=== PATIENT | female | born 1990 | race Caucasian/White ===

== ENCOUNTER 2022-04-10 11:20 | Inpatient (IN) | payer BC ==
[2022-04-10] MEDS ORDERED: CITRIC ACID-SODIUM CITRATE 15 ML CUP PO ONE (13:12)
--- NOTE | 2022-04-10 13:16 | P.HPOB ---
History of Present Illness H&P Date: 04/10/22 Chief Complaint: oligohydramnios 31-year-old presents at 36 weeks and 5 days. She can to my office for an OB visit and had an ultrasound for fluid. Her last week her fluid was between 4 and 6 cm. This week her fluid is 3 cm. heart tones 140 with moderate variability and reactive no decelerations. I discussed the case with maternal medicine who recommended delivery. The baby is in breech presentation so she will undergo a primary low transverse . Review of Systems All systems: negative Constitutional: Denies chills, Denies fever Eyes: denies blurred vision, denies pain Ears, nose, mouth and throat: Denies headache, Denies sore throat Cardiovascular: Denies chest pain, Denies shortness of breath Respiratory: Denies cough Gastrointestinal: Denies abdominal pain, Denies diarrhea, Denies nausea, Denies vomiting Genitourinary: Denies dysuria, Denies hematuria Musculoskeletal: Denies myalgias Integumentary: Denies pruritus, Denies rash Neurological: Denies numbness, Denies weakness Psychiatric: Denies anxiety, Denies depression Endocrine: Denies fatigue, Denies weight change Medications and Allergies Allergies Allergy/AdvReac Type Severity Reaction Status Date / Time clindamycin Allergy Rash/Hives Verified 04/10/22 12:12 Sulfa (Sulfonamide Allergy Rash/Hives Verified 04/10/22 12:12 Antibiotics) sulfamethoxazole Allergy Rash/Hives Verified 04/10/22 12:12 [From Bactrim] trimethoprim [From Bactrim] Allergy Rash/Hives Verified 04/10/22 12:12 Exam Osteopathic Statement: *. No significant issues noted on an osteopathic structural exam other than those noted in the History and Physical/Consult. Intake and Output 04/09/22 04/10/22 04/10/22 22:59 06:59 14:59 Other: Weight 99.79 kg Heart: Regular rate and rhythm Lungs: Clear to auscultation bilaterally Abdomen: Soft, nontender Extremities: Negative Homans sign Assessment and Plan (1) 36 weeks gestation of Current Visit: Yes Status: Acute Code(s): Z3A.36 - 36 WEEKS GESTATION OF SNOMED Code(s): 33769198 (2) Oligohydramnios Current Visit: Yes Status: Acute Code(s): O41.00X0 - OLIGOHYDRAMNIOS, UNSP TRIMESTER, NOT APPLICABLE OR UNSP SNOMED Code(s): 37683841 (3) Breech presentation Current Visit: Yes Status: Acute Code(s): O32.1XX0 - MATERNAL CARE FOR BREECH PRESENTATION, UNSP SNOMED Code(s): 0703193 Plan: 1. Primary low transverse
[2022-04-10 14:56] LABS: Basophils # (A) 0.1 k/uL (0-0.2); Basophils % (A) 0 %; Eosinophils % (A) 0 %; HCT 41.2 % (34.0-46.0); HGB 13.2 gm/dL (11.4-16.0); Lymphocytes # (A) 1.5 k/uL (1.0-4.8); Lymphocytes % (A) 12 %; MCH 27.9 pg (25.0-35.0); MCV 87.2 fL (80.0-100.0); Mean Platelet Volume 7.7; Monocytes # (A) 0.4 k/uL (0-1.0); Monocytes % (A) 3 %; Neutrophils # (A) 10.4 k/uL (1.3-7.7); Neutrophils % (A) 83 %; Platelet Count 171 k/uL (150-450); RBC 4.72 m/uL (3.80-5.40); RDW 13.9 % (11.5-15.5); WBC 12.5 k/uL (3.8-10.6)
[2022-04-10 15:16] LABS: Partial Thromboplastin Time 27.4 sec (22.0-30.0); Prothrombin Time 11.2 sec (9.0-12.0)
[2022-04-10] MEDS: LACTATED RINGERS 1,000 ML IV SCH ×4 (16:20→21:33)
[2022-04-10] MEDS ORDERED: ONDANSETRON 4 MG/2 ML VIAL ONE (17:03)
[2022-04-10] MEDS ORDERED: NALBUPHINE 10 MG/ML (1 ML AMP) ONE (17:03)
[2022-04-10] MEDS ORDERED: MORPHINE SULFATE (PF) 0.3 MG/0.3 ML SYR ONE (17:03)
[2022-04-10] MEDS ORDERED: KETOROLAC 15 MG/ML 1 ML VIAL ONE (17:03)
[2022-04-10] MEDS ORDERED: OXYTOCIN 30 UNITS/500 ML NS BAG IV ONE (17:03)
[2022-04-10] MEDS ORDERED: ONDANSETRON 4 MG/2 ML VIAL IVP PRN (17:46)
[2022-04-10] MEDS ORDERED: diphenhydrAMINE 50 MG/ML 1 ML VIAL IVP PRN ×2 (17:46)
[2022-04-10] MEDS ORDERED: diphenhydrAMINE 50 MG CAP PO PRN (17:46)
[2022-04-10] MEDS ORDERED: LANOLIN CREAM 5 GM TUBE TOPICAL PRN (17:46)
[2022-04-10] MEDS ORDERED: SIMETHICONE 80 MG CHEWABLE PO PRN (17:46)
[2022-04-10] MEDS ORDERED: NALOXONE 0.4 MG/ML 1 ML VIAL IV PRN ×2 (17:46→18:36)
[2022-04-10] MEDS ORDERED: METOCLOPRAMIDE 5 MG/ML 2 ML VIAL IVP PRN (17:46)
[2022-04-10] MEDS ORDERED: diphenhydrAMINE 25 MG CAP PO PRN (17:46)
[2022-04-10] MEDS ORDERED: ZOLPIDEM 5 MG TAB PO PRN (17:46)
--- NOTE | 2022-04-10 17:52 | P.OP ---
Date of Procedure: 04/10/22 Preoperative Diagnosis: 1. at 36 weeks and 5 days 2. Oligohydramnios 3. Breech Postoperative Diagnosis: 1. at 36 weeks and 5 days 2. Oligohydramnios 3. Suspect chorioamnionitis 4. Breech Procedure(s) Performed: Primary low transverse Anesthesia: spinal Surgeon: Aleida Farias Piano Builder #1: Gisell Jacinto Estimated Blood Loss (ml): 215 IV fluids (ml): 700 Urine output (ml): 250 Pathology: other (Placenta) Condition: stable Disposition: floor Description of Procedure: Patient was taken to the operating room where spinal anesthesia was found be adequate. She was prepped and draped in normal sterile fashion in dorsal supine position with a leftward tilt. Pfannenstiel skin incision was made the scalpel and carried through to the underlying layer of fascia with the scalpel. Fascia was incised in midline and carried bilaterally with the Blackmon scissors. The superior aspect of the fascial incision was grasped with Rene clamps elevated and the underlying rectus muscles dissected off with the Blackmon's. Attention was then turned to inferior aspect of same incision which in a similar fashion was grasped tented up and the underlying rectus muscles dissected off with the Blackmon's. The rectus muscles were the midline and the peritoneum was identified tented up and entered sharply with the scalpel. The incision was extended superiorly and inferiorly with good visualization of the bladder. The bladder blade was inserted and the vesicouterine peritoneum was incised the Metzenbaums then carried bilaterally and bladder flap created digitally. A low transverse incision was then made on the uterus with the scalpel. This was carried bilaterally and digital manner. 's head delivered atraumatically, nose and mouth bulb suctioned, cord clamped and cut, handed off to waiting nurses. Apgars 5,9, weight 6 lbs. 1 oz. Placenta delivered manually, intact with three-vessel cord. The uterus is exteriorized and cleared of all clots and debris. At this time a foul odor was noted to be coming from the placenta, the uterus and the baby. The uterine incision was closed with 0 Vicryl in a running locked fashion. Second layer of the same sutures used in imbricating fashion to obtain excellent hemostasis. Bladder flap was then reapproximated using 2-0 Vicryl in a running fashion. Both ovaries and tubes appeared normal. The uterus was placed back into the abdomen. The peritoneum was reapproximated using 2-0 Vicryl in a running fashion. The muscles were reapproximated using 2-0 Vicryl in interrupted fashion. The fascia was reapproximated using 0 Vicryl in a running fashion. The subcutaneous tissues closed with 3-0 Vicryl running fashion. The skin was closed zora. Patient tolerated the procedure well, sponge and instrument counts were correct times 2 and she was taken to the recovery room in stable condition.
[2022-04-10] MEDS ORDERED: OXYTOCIN 30 UNITS/500 ML NS 30 UNIT in SALINE 1 500ML.BAG IV SCH (18:00)
[2022-04-10] MEDS ORDERED: MORPHINE SULFATE 2 MG/ML SYRINGE IVP PRN (18:36)
[2022-04-10] MEDS: ACETAMINOPHEN TAB 500 MG TAB PO SCH (21:41)
[2022-04-10] MEDS: SENNOSIDES-DOCUSATE SODIUM 1 EACH TAB PO SCH (21:42)
[2022-04-11] MEDS: KETOROLAC 15 MG/ML 1 ML VIAL IVP SCH ×4 (01:15→17:20)
[2022-04-11] MEDS: LACTATED RINGERS 1,000 ML IV SCH ×3 (02:49→14:26)
[2022-04-11] MEDS: ACETAMINOPHEN TAB 500 MG TAB PO SCH ×4 (05:21→20:45)
[2022-04-11] MEDS: SENNOSIDES-DOCUSATE SODIUM 1 EACH TAB PO SCH ×2 (07:42→23:07)
[2022-04-11 08:46] LABS: Basophils % (A) 0 %; Eosinophils # (A) 0.1 k/uL (0-0.7); Eosinophils % (A) 1 %; HCT 39.1 % (34.0-46.0); HGB 12.4 gm/dL (11.4-16.0); Lymphocytes % (A) 8 %; MCH 27.8 pg (25.0-35.0); MCHC 31.6 g/dL (31.0-37.0); MCV 87.8 fL (80.0-100.0); Mean Platelet Volume 8.7; Monocytes # (A) 0.4 k/uL (0-1.0); Monocytes % (A) 3 %; Neutrophils # (A) 10.2 k/uL (1.3-7.7); Neutrophils % (A) 87 %; Platelet Count 152 k/uL (150-450); RBC 4.46 m/uL (3.80-5.40); RDW 13.9 % (11.5-15.5); WBC 11.8 k/uL (3.8-10.6)
--- NOTE | 2022-04-11 08:46 | P.PN ---
Progress Note - Text Date: 04/11/2022 Time: 07:48 The patient is status post section Vital signs stable VAS: 0-10 Patient has no complaints of pain. The patient incurred some minimal itching yesterday, this itching is now subsiding. Pain meds to be managed by service.
--- NOTE | 2022-04-11 12:16 | P.PNOBGPC ---
Subjective - Subjective Principal diagnosis: Status post primary section postoperative day #1 Interval history: Patient is doing okay. She is ambulating. She is passing flatus but no bowel movement yet. She is urinating without difficulty. Bleeding has slowed down. Baby is in level I nursery. Patient reports: Reports appetite normal, Reports voiding normally, Reports pain well controlled, Reports ambulating normally Douglas: other (In level I nursery) Objective - Vital Signs Latest vital signs: Vital Signs Temp Pulse Resp BP Pulse Ox 04/11/22 11:00 18 97 04/11/22 09:00 18 04/11/22 07:45 97.9 F 83 18 121/77 97 04/11/22 07:00 97.9 F 83 18 121/77 97 04/11/22 04:00 98.2 F 82 16 135/68 99 04/11/22 00:00 98.2 F 82 18 135/68 99 04/10/22 23:03 99 04/10/22 23:00 97.6 F 87 20 132/64 98 04/10/22 21:36 18 99 04/10/22 20:00 98.0 F 04/10/22 19:50 77 18 136/76 99 04/10/22 19:36 99 04/10/22 19:19 98.2 F 76 18 137/64 98 04/10/22 18:49 96.8 F L 89 17 145/63 97 04/10/22 18:36 17 98 04/10/22 18:34 68 17 138/71 98 04/10/22 18:19 64 17 133/76 97 04/10/22 18:04 66 16 130/62 97 04/10/22 17:49 97.8 F 75 17 131/60 96 04/10/22 14:11 98.0 F 96 14 146/92 Intake and Output 04/10/22 04/11/22 04/11/22 22:59 06:59 14:59 Intake Total 1050 120 Output Total 444 228 5521 Balance 360 -230 -1150 Intake: IV 1050 Oral 120 Output: Urine 662 614 1920 Uretheral (Pineda) 300 Output, Quantitative 290 Blood Loss Other: Voiding Method Indwelling Catheter # Voids 250 2 - Exam Extremities: Present: normal. Absent: tenderness, edema Abdomen: Present: normal appearance, soft (Positive bowel sounds 4). Absent: distention, tenderness Incision: Present: normal, dry, intact. Absent: erythematous Uterus: Present: normal, firm. Absent: tenderness - Labs Labs: Abnormal Lab Results - Last 24 Hours (Table) 04/10/22 04/11/22 Range/Units 14:37 08:30 WBC 12.5 H 11.8 H (3.8-10.6) k/uL Neutrophils # 10.4 H 10.2 H (1.3-7.7) k/uL Assessment and Plan Assessment: Status post primary low transverse section postoperative day #1 Plan: Continue with postoperative and care. Will advance diet as tolerated.
[2022-04-12] MEDS: KETOROLAC 15 MG/ML 1 ML VIAL IVP SCH ×2 (00:12→06:29)
[2022-04-12] MEDS: ACETAMINOPHEN TAB 500 MG TAB PO SCH ×3 (04:33→18:24)
[2022-04-12] MEDS: SENNOSIDES-DOCUSATE SODIUM 1 EACH TAB PO SCH ×2 (08:50→20:10)
--- NOTE | 2022-04-12 10:54 | P.PNOBGPC ---
Subjective - Subjective Principal diagnosis: Status post primary section postoperative day #2 Interval history: Patient is doing well. She is ambulating and passing flatus and bowel movement. She is urinating without difficulty. Lochia is minimal. She is starting to pump some breast milk. Baby is in level I nursery. Patient reports: Reports appetite normal, Reports voiding normally, Reports pain well controlled, Reports ambulating normally : other (In level I nursery) Objective - Vital Signs Latest vital signs: Vital Signs Temp Pulse Resp BP Pulse Ox 04/12/22 08:00 98.8 F 81 20 117/76 04/12/22 00:00 97.9 F 70 16 122/82 99 04/11/22 15:52 98.2 F 83 18 119/76 99 04/11/22 12:00 98.4 F 71 18 129/79 99 04/11/22 11:00 18 97 Intake and Output 04/11/22 04/12/22 04/12/22 22:59 06:59 14:59 Other: Voiding Method Toilet # Voids 2 3 - Exam Extremities: Present: normal. Absent: tenderness, edema Abdomen: Present: normal appearance, soft. Absent: distention, tenderness Incision: Present: normal, dry, intact. Absent: erythematous Uterus: Present: normal, firm. Absent: tenderness Assessment and Plan Assessment: Status post primary low transverse section postoperative day #2 Plan: Continue with postoperative and care. Will work on pumping breast mi
[2022-04-12] MEDS: IBUPROFEN 600 MG TAB PO SCH ×2 (12:48→20:09)
[2022-04-13] MEDS: ACETAMINOPHEN TAB 500 MG TAB PO SCH ×2 (00:06→20:03)
[2022-04-13] MEDS: IBUPROFEN 600 MG TAB PO SCH ×5 (02:16→22:21)
[2022-04-13] MEDS: SENNOSIDES-DOCUSATE SODIUM 1 EACH TAB PO SCH ×2 (07:30→20:04)
--- NOTE | 2022-04-13 08:45 | P.PNOBGPC ---
Subjective - Subjective Principal diagnosis: Status post primary low transverse postop day #3 Interval history: Patient seen and examined. Denies nausea, vomiting, chest pain, shortness of breath or any calf pain. Patient reports: Reports appetite normal, Reports pain well controlled, Reports ambulating normally Objective - Vital Signs Latest vital signs: Vital Signs Temp Pulse Resp BP 04/13/22 07:43 97.9 F 88 16 128/83 04/12/22 23:59 97.9 F 80 16 119/75 04/12/22 15:42 97.8 F 70 16 128/83 04/12/22 12:00 98.7 F 85 16 128/80 - Exam Lungs: bilateral: normal Chest: Normal S1, Normal S2 Extremities: Present: normal Abdomen: Present: normal appearance, soft. Absent: distention, tenderness Incision: Present: normal, dry, intact Uterus: Present: normal, firm Assessment and Plan (1) 36 weeks gestation of Current Visit: Yes Status: Resolved Code(s): Z3A.36 - 36 WEEKS GESTATION OF SNOMED Code(s): 54304210 (2) Oligohydramnios Current Visit: Yes Status: Resolved Code(s): O41.00X0 - OLIGOHYDRAMNIOS, UNSP TRIMESTER, NOT APPLICABLE OR UNSP SNOMED Code(s): 55068627 (3) Breech presentation Current Visit: Yes Status: Resolved Code(s): O32.1XX0 - MATERNAL CARE FOR BREECH PRESENTATION, UNSP SNOMED Code(s): 0117596 (4) Status post primary low transverse section Current Visit: Yes Status: Acute Code(s): Z98.891 - HISTORY OF UTERINE SCAR FROM PREVIOUS SURGERY SNOMED Code(s): 788360978 Plan: 1. Continue care
[2022-04-14] MEDS: IBUPROFEN 600 MG TAB PO SCH ×2 (03:25→09:29)
[2022-04-14] MEDS: ACETAMINOPHEN TAB 500 MG TAB PO SCH (04:42)
--- NOTE | 2022-04-14 07:50 | P.DS ---
Providers Date of admission: 04/10/22 12:49 Expected date of discharge: 04/14/22 Attending physician: Aleida Farias Primary care physician: Stated None - Discharge Diagnosis(es) (1) 36 weeks gestation of Current Visit: Yes Status: Resolved (2) Oligohydramnios Current Visit: Yes Status: Resolved (3) Breech presentation Current Visit: Yes Status: Resolved (4) Status post primary low transverse section Current Visit: Yes Status: Acute Hospital Course: Patient presented to my office with oligohydramnios. She underwent a primary low transverse for breech and oligohydramnios at 36 weeks. course was uncomplicated. She denies nausea, vomiting, chest pain, shortness of breath or calf pain. Her lochia is decreasing her pain is well-controlled. Patient will be discharged home postoperative day #4 in stable condition to follow-up with me in one week. Plan - Discharge Summary New Discharge Prescriptions: New Ibuprofen [Motrin] 600 mg PO QID #40 tab oxyCODONE HCL [OxyIR] 5 mg PO Q4HR PRN #12 tab PRN Reason: Pain Scale 4 - 6 Discharge Medication List Ibuprofen [Motrin] 600 mg PO QID #40 tab 04/14/22 [Rx] oxyCODONE HCL [OxyIR] 5 mg PO Q4HR PRN #12 tab 04/14/22 [Rx] Follow up Appointment(s)/Referral(s): Aleida Farias DO [Doctor of Osteopathic Medicine] - 05/21/22 10:15 am (C/S post op appt-04/22/2022@1:45pm) Discharge Disposition: HOME SELF-CARE
[2022-04-14 08:56] VITALS: BP 132/85; PULSE 91; RESP 17; TEMP 97.8
[2022-04-14] MEDS: SENNOSIDES-DOCUSATE SODIUM 1 EACH TAB PO SCH (08:56)
== END 2022-04-14 15:30 | disposition home or self-care (01) | DRG 788 ==
LOC: FBPOP 11:20 → 4FBP 12:49
PROVIDERS: ADMIT Obstetrics & Gynecology; ATTEND Obstetrics & Gynecology
PROC: 10D00Z1 Extraction of Products of Conception, Low, Open Approach (ICD-10-PCS; principal; 2022-04-10 17:00)
DX: O41.03X0 Oligohydramnios, third trimester, not applicable or unspecified (principal); O32.1XX0 Maternal care for breech presentation, not applicable or unspecified; Z3A.36 36 weeks gestation of pregnancy; Z88.1 Allergy status to other antibiotic agents; Z88.2 Allergy status to sulfonamides
CPT/HCPCS: 59025; 84112; 85025; 85610; 85730; 86850; 86900; 86901; 88307; 99215